=== PATIENT | male | born 1935 | race Caucasian/White ===

== ENCOUNTER 2020-06-18 17:14 | Inpatient (IN) | payer MEDICARE, OTHER ==
[~2020-06-18] VITALS: Ht 177.8 cm; Wt 105.0 kg
[2020-06-18 18:56] LABS: Basophils # (auto) 0.1 10 ^3/uL (0-0.2); Basophils % (auto) 0.7 % (0.0-2.0); Eosinophils # (auto) 0.2 10 ^3/uL (0-0.8); Eosinophils % (auto) 1.9 % (0.0-7.0); Hematocrit 43.9 % (41.0-53.0); Hemoglobin 14.5 g/dL (13.5-17.5); Lymphocytes # (auto) 1.2 10 ^3/uL (0.4-5.4); Lymphocytes % (auto) 12.5 % (10.0-50.0); Mean Corpuscular Hgb Conc. 32.9 g/dL (32.0-36.0); Mean Corpuscular Volume 100.4 fL (80.0-100.0); Monocytes # (auto) 0.7 10 ^3/uL (0-1.3); Monocytes % (auto) 7.1 % (0.0-12.0); Neutrophils # (auto) 7.7 10 ^3/uL (1.6-8.6); Neutrophils % (auto) 77.8 % (37.0-80.0); Nucleated Red Blood Cells % 0.1 %; Platelet Count (auto) 144 10^3/uL (140-450); Red Blood Cells 4.38 10^6/uL (4.5-5.90); Red Cell Distribution Width 14.3 % (11.8-14.3); White Blood Cell 9.9 10^3/uL (4.4-10.8)
[2020-06-18 19:09] LABS: Albumin 3.9 g/dL (3.4-5.0); Calcium 9.4 mg/dL (8.5-10.1); Magnesium 2.4 mg/dL (1.6-2.6); Potassium 3.7 mmol/L (3.5-5.1)
[2020-06-18 19:10] LABS: INR 1.06 (0.9-1.15); Partial Thromboplastin Time 22.8 sec (23.0-31.2)
[2020-06-18 19:16] LABS: BUN/Creatinine Ratio 20.3; Total Protein 7.4 g/dL (6.4-8.2)
[2020-06-18] MEDS ORDERED: ONDANSETRON HCL 4 MG/2 ML VIAL IV PRN (21:30)
[2020-06-18] MEDS ORDERED: dilTIAZem 25 MG/5 ML VIAL IV ONE (21:30)
[2020-06-18] MEDS ORDERED: NITROGLYCERIN 0.4 MG SL TAB SL PRN (21:30)
[2020-06-18] MEDS ORDERED: ENOXAPARIN SOD 100 MG/1 ML SYRINGE SC ONE (21:30)
[2020-06-18] MEDS ORDERED: ACETAMINOPHEN 325 MG TAB PO PRN (21:30)
[2020-06-18] MEDS ORDERED: MORPHINE SULF INJ 2 MG/ML SYRINGE 1ML IV PRN (21:30)
[2020-06-18] MEDS ORDERED: ATORVASTATIN 20 MG TAB PO SCH (22:00)
[2020-06-18] MEDS: SODIUM CHLORIDE 0.9% 1,000 ML IV SCH (22:12)
[2020-06-18] MEDS: METOPROLOL TARTRATE 25 MG TAB PO SCH (22:13)
[2020-06-18] MEDS: FAMOTIDINE 20 MG TAB PO SCH (22:13)
[2020-06-18] MEDS ORDERED: HYDR25TA4 PO (23:41)
[2020-06-19 05:00] VITALS: BP 141/87
[2020-06-19 06:06] LABS: Basophils # (auto) 0.1 10 ^3/uL (0-0.2); Basophils % (auto) 0.8 % (0.0-2.0); Eosinophils # (auto) 0.2 10 ^3/uL (0-0.8); Eosinophils % (auto) 2.2 % (0.0-7.0); Hematocrit 42.6 % (41.0-53.0); Hemoglobin 14.1 g/dL (13.5-17.5); Lymphocytes # (auto) 1.9 10 ^3/uL (0.4-5.4); Mean Corpuscular Hemoglobin 33.4 pg (28.0-32.0); Mean Corpuscular Hgb Conc. 33.1 g/dL (32.0-36.0); Monocytes # (auto) 0.9 10 ^3/uL (0-1.3); Monocytes % (auto) 9.9 % (0.0-12.0); Neutrophils # (auto) 5.9 10 ^3/uL (1.6-8.6); Neutrophils % (auto) 66.1 % (37.0-80.0); Nucleated Red Blood Cells % 0.1 %; Platelet Count (auto) 134 10^3/uL (140-450); Red Blood Cells 4.22 10^6/uL (4.5-5.90); Red Cell Distribution Width 14.3 % (11.8-14.3)
[2020-06-19 06:23] LABS: BUN/Creatinine Ratio 21.4; Calcium 9.1 mg/dL (8.5-10.1); Potassium 4.1 mmol/L (3.5-5.1)
--- NOTE | 2020-06-19 07:30 | NUR ---
Opening Shift Note Assumed care of patient, who is alert and oriented x4. No S/S of distress/SOB. No reports of chest pain at this time. Bed is low, locked with 2x side rails up. Call light is within reach. Instructed on POC and to call for assist PRN, will continue to monitor for changes Q1hr and PRN.
[2020-06-19] MEDS ORDERED: HEPARIN DRIP/D5W 100UNITS/ML 250 ML IV SCH ×2 (08:57→09:30)
[2020-06-19] MEDS ORDERED: HEPARIN SODIUM (PORCINE) 5000 UNITS/ML 1ML VIAL IV ONE (09:00)
--- NOTE | 2020-06-19 09:02 | NUR ---
RECEIVED CRITICAL TROP 10.8 FROM LAB. NOTIFIED LAURO BRISCOE.
[2020-06-19 09:07] VITALS: BP 135/78
--- NOTE | 2020-06-19 09:07 | NUR ---
LOWERATOR OPERATOR Dru aware of critical troponin Critical troponin: 10.8. LOWERATOR OPERATOR Dru aware. LOWERATOR OPERATOR to input new orders. Patient denies chest pain at this time. Will carry out orders.
[2020-06-19 09:22] LABS: Cholesterol 134 mg/dL (< 200)
[2020-06-19 09:25] LABS: HDL Cholesterol 53 mg/dL (40-59); LDL Cholesterol 73 mg/dL (< 100); Triglycerides 94 mg/dL (< 150)
[2020-06-19 09:27] LABS: INR 1.14 (0.9-1.15); Partial Thromboplastin Time 28.9 sec (23.0-31.2)
--- NOTE | 2020-06-19 09:50 | NUR ---
cleaning laborer Spoke with construction laborer staff Dayami to coordinate time for patient's [facility] procedure today. Patient will be started on Heparin drip and per communication order the drip needs to be stopped one hour before procedure. cleaning laborer to contact this nurse ahead of time so Heparin drip can be stopped.
[2020-06-19] MEDS ORDERED: ASPirin 81 mg TAB PO SCH (10:00)
--- NOTE | 2020-06-19 10:11 | NUR ---
Heparin Drip Started per MD orders. Starting rate 10 ml/hr.
[2020-06-19] MEDS: METOPROLOL TARTRATE 25 MG TAB PO SCH ×2 (10:14→21:48)
[2020-06-19] MEDS: FAMOTIDINE 20 MG TAB PO SCH ×2 (10:14→21:48)
[2020-06-19] MEDS: SODIUM CHLORIDE 0.9% 1,000 ML IV SCH (10:18)
[2020-06-19 13:00] VITALS: BP 132/67
[2020-06-19] MEDS ORDERED: traMADol HCL 50 MG TAB PO PRN (14:00)
--- NOTE | 2020-06-19 15:32 | NUR ---
Patient off unit Heparin drip stopped and patient taken to labor representative for LHC with Dr. Hassan. No distress noted upon departure.
[2020-06-19] MEDS ORDERED: IOHEXOL 350 MG/ML 100ML IJ ONE (16:27)
[2020-06-19] MEDS ORDERED: LIDOCAINE 2%HCL (LOCAL ANESTH.) INJ 20ML MDV ONE (16:27)
[2020-06-19] MEDS ORDERED: VERAPAMIL 2.5MG/ML INJ 2ML VIAL IV ONE (16:36)
[2020-06-19] MEDS ORDERED: HEPARIN SODIUM (PORCINE) 5000 UNITS/ML 1ML VIAL ONE (16:36)
[2020-06-19] MEDS ORDERED: ANGIOMAX 250 MG VIAL IV ONE (16:36)
[2020-06-19] MEDS ORDERED: SODIUM CHL 0.9% 0 ML ONE (16:37)
[2020-06-19] MEDS ORDERED: fentaNYL CITRATE 100 MCG/2 ML VL ONE (16:37)
[2020-06-19] MEDS ORDERED: MIDAZOLAM HCL 1MG/1ML-2 ML VIAL ONE (16:37)
--- NOTE | 2020-06-19 18:01 | NUR ---
Back on unit S/p LHC with Dr. Hassan. Incision is to right wrist with tegaderm dressing C/D/I. Patient aware of restrictions. Will continue to monitor site. Bed is low, locked with 2x side rails up. Call light is within reach.
--- NOTE | 2020-06-19 18:21 | NUR ---
Patient cleared from cardiology Per Dr. Hassan, patient is cleared from cardio standpoint. Received new orders from Dr. Hassan to stop Heparin drip. Received new orders for Aspirin, Lipitor and Plavix. Orders carried out.
[2020-06-19 19:18] LABS: INR 1.1 (0.9-1.15); Partial Thromboplastin Time 36.7 sec (23.0-31.2)
--- NOTE | 2020-06-19 19:34 | NUR ---
Opening Shift Note Assumed care of patient, awake and alert. No S/S of distress/SOB or pain. Dressing to right wrist is clean dry and intact. Instructed on POC and to call for assist PRN, will continue to monitor for changes Q1hr and PRN. Fall precautions in place and call light within reach. patient is not on heparin per dayshift cora Campbell per MD Hassan heparin to be discontinued
--- NOTE | 2020-06-19 21:18 | NUR ---
pain pain 3/10 generalized pain. patient requested tylenol. patient denies allergies to tylenol. patient medicated per md order.
--- NOTE | 2020-06-19 21:48 | NUR ---
patient refused medications scheduled. patient educated on benefits and risks of medications. patient verbalized refusal
[2020-06-19 22:00] VITALS: BP 109/61
[2020-06-19] MEDS ORDERED: ATORVASTATIN 20 MG TAB PO SCH ×2 (22:00)
[2020-06-19 22:31] LABS: Urine Bacteria NONE SEEN /hpf (None Seen); Urine Blood Negative /uL (Negative); Urine Mucus FEW (None Seen); Urine WBC <1 /hpf (0 - 3)
[2020-06-19 22:48] LABS: Urine Specific Gravity > 1.050 (1.001-1.035)
[2020-06-20] MEDS: SODIUM CHLORIDE 0.9% 1,000 ML IV SCH (00:42)
--- NOTE | 2020-06-20 01:50 | NUR ---
patient had a run of vtach. patient denies sob distress or pain b/p 98/64, heart rate 87bpm, o2 saturation 95% via 2 l n/c, rr 18 bilateral chest rise and fall even and unlabored. ekg done and placed in chart, continues to read AFIB 85bpm.
[2020-06-20 05:00] VITALS: BP 101/42
--- NOTE | 2020-06-20 05:19 | NUR ---
patient refused lab draw. per laborer [facility] they will return at 0930am to draw lab
--- NOTE | 2020-06-20 06:38 | NUR ---
patient resting in bed denies sob distress or pain. fall precautions in place. call light within reach and bed in low position. iv is intact and patent. dressing is clean dry and intact
--- NOTE | 2020-06-20 07:20 | NUR ---
REPORT GIVEN TO DAYSHIFT RN PATIENT DENIES SOB DISTRESS OR PAIN
--- NOTE | 2020-06-20 08:00 | NUR ---
Opening Shift Note Assumed care of patient, awake, alert and oriented X3, thinks he's in a hotel, re-oriented to surroundings verbalized understanding. Tele# [id number], Atrial Fibrillation @ 101 bpm. No S/S of distress/SOB or pain. Iv to right hand, 20 gauge, patent and infusing 0.9% NS @ 75 ml/hr. Right radial dressing removed, clean dry and intact, S/P angiogram access site, no swelling noted, pulse is strong and irregular due to A-Fib. Instructed on POC and to call for assist PRN, verbalized understanding but placed bed alarm on due to patient being forgetful. bed locked, in lowest position, call light within reach, will continue to monitor for changes Q1hr and PRN.
[2020-06-20 09:00] VITALS: BP 129/72
[2020-06-20 09:45] LABS: Basophils # (auto) 0.1 10 ^3/uL (0-0.2); Basophils % (auto) 1.1 % (0.0-2.0); Eosinophils # (auto) 0.2 10 ^3/uL (0-0.8); Eosinophils % (auto) 2.4 % (0.0-7.0); Hemoglobin 13.3 g/dL (13.5-17.5); Lymphocytes % (auto) 12.1 % (10.0-50.0); Mean Corpuscular Hemoglobin 33.2 pg (28.0-32.0); Mean Corpuscular Hgb Conc. 33.1 g/dL (32.0-36.0); Mean Corpuscular Volume 100.3 fL (80.0-100.0); Monocytes # (auto) 0.6 10 ^3/uL (0-1.3); Monocytes % (auto) 7.8 % (0.0-12.0); Neutrophils # (auto) 6.3 10 ^3/uL (1.6-8.6); Neutrophils % (auto) 76.6 % (37.0-80.0); Platelet Count (auto) 125 10^3/uL (140-450); Red Blood Cells 3.99 10^6/uL (4.5-5.90); White Blood Cell 8.2 10^3/uL (4.4-10.8)
[2020-06-20] MEDS ORDERED: CLOPIDOGREL BISULFATE 75 MG TAB PO SCH (10:00)
[2020-06-20] MEDS ORDERED: ASPirin-EC 81 mg tab PO SCH (10:00)
[2020-06-20 10:05] LABS: BUN/Creatinine Ratio 19.1; Calcium 8.8 mg/dL (8.5-10.1); Potassium 3.6 mmol/L (3.5-5.1)
[2020-06-20] MEDS: METOPROLOL TARTRATE 25 MG TAB PO SCH (10:43)
[2020-06-20] MEDS: FAMOTIDINE 20 MG TAB PO SCH (10:43)
--- NOTE | 2020-06-20 11:33 | NUR ---
ROUNDS Dr Rothman at bedside for rounds, new orders received and followed through. Patient updated on plan of care, verbalized understanding.
[2020-06-20 13:00] VITALS: BP 100/60
[2020-06-20 13:31] VITALS: BP 129/72
--- NOTE | 2020-06-20 14:38 | NUR ---
Discharge instructions given as ordered. Encourage to follow up with PMD as instructed. All questions and concerns addressed. Patient verbalized understanding. Medication reconciliation form completed and copy given to patient. IV removed with catheter intact, pressure dressing applied. Telemetry unit returned to ICU. Patient awaiting Else for transportation.
--- NOTE | 2020-06-20 16:08 | NUR ---
Patient taken to vehicle via wheelchair with all personal belongings, accompanied by staff and family member. No distress noted at time of departure.
[2020-06-20] MEDS ORDERED: APIXABAN 2.5 MG TAB PO SCH (22:00)
== END 2020-06-20 16:05 | disposition home or self-care (01) | DRG 280 ==
LOC: EDBD 17:14 → ER 17:14 → TELE-WESTW 17:15
PROVIDERS: ADMIT Nurse Practitioner; ATTEND Internal Medicine
PROC: 4A023N7 Measurement of Cardiac Sampling and Pressure, Left Heart, Percutaneous Approach (ICD-10-PCS; principal; 2020-06-19)
PROC: B2111ZZ Fluoroscopy of Multiple Coronary Arteries using Low Osmolar Contrast (ICD-10-PCS; 2020-06-19)
PROC: B2151ZZ Fluoroscopy of Left Heart using Low Osmolar Contrast (ICD-10-PCS; 2020-06-19)
DX: I21.4 Non-ST elevation (NSTEMI) myocardial infarction (principal); I50.41 Acute combined systolic (congestive) and diastolic (congestive) heart failure; N17.0 Acute kidney failure with tubular necrosis; D68.69 Other thrombophilia; I48.91 Unspecified atrial fibrillation; E66.9 Obesity, unspecified; R73.03 Prediabetes; I11.0 Hypertensive heart disease with heart failure; R00.0 Tachycardia, unspecified; I27.21 Secondary pulmonary arterial hypertension; Z88.5 Allergy status to narcotic agent; Z79.01 Long term (current) use of anticoagulants; Z68.31 Body mass index [BMI] 31.0-31.9, adult
CPT/HCPCS: 36415; 71045; 80048; 80053; 80061; 81001; 83735; 83880; 84443; 84484; 85025; 85610; 85730; 93005; 93306; 93458; 99152; G0378; J2250

== ENCOUNTER → 2020-08-27 | Outpatient (CLI) | payer MEDICARE, BC ==
[~2020-08-27] MED LIST: HYDR25TA4 PO
== END | disposition home or self-care (01) ==
LOC: XYW 08:18
PROVIDERS: ATTEND Internal Medicine
DX: I08.3 Combined rheumatic disorders of mitral, aortic and tricuspid valves (principal); I48.19 Other persistent atrial fibrillation
CPT/HCPCS: 93306